=== PATIENT | male | born 1965 | race Caucasian/White ===

== ENCOUNTER 2019-03-23 23:33 | Emergency (ER) | payer SELFPAY ==
[~2019-03-23] VITALS: Ht 172.7 cm; Wt 100.0 kg
[2019-03-24] MEDS ORDERED: IBUPROFEN 400MG TABLET PO ONE (00:30)
[2019-03-24 01:39] VITALS: BP 122/81
== END 2019-03-24 01:41 | disposition home or self-care (01) ==
LOC: ER 23:45
DX: S09.8XXA Other specified injuries of head, initial encounter (principal); V43.52XA Car driver injured in collision with other type car in traffic accident, initial encounter; Y93.89 Activity, other specified; Y92.488 Other paved roadways as the place of occurrence of the external cause
CPT/HCPCS: 99284